=== PATIENT | male | born 1975 | race Hispanic/Latino ===

== ENCOUNTER 2017-09-20 22:15 | Emergency (ER) | payer SELFPAY ==
[~2017-09-20] VITALS: Ht 177.8 cm; Wt 102.1 kg
[~2017-09-20 22:15] MED LIST: ADULTS' DAILY1 EACH PO; PERCOCET 7.5-31 EACH PO
[2017-09-20] MEDS ORDERED: CYCLOBENZAPRINE10 MG PO (22:53)
[2017-09-20] MEDS ORDERED: DICLOFENAC SODI75 MG PO (22:53)
== END 2017-09-20 23:06 | disposition home or self-care (01) ==
LOC: ED 22:15
DX: M54.5 Low back pain (principal); I10 Essential (primary) hypertension; F17.200 Nicotine dependence, unspecified, uncomplicated; Z88.0 Allergy status to penicillin; Z98.890 Other specified postprocedural states; Z79.899 Other long term (current) drug therapy
CPT/HCPCS: 99283

== ENCOUNTER 2018-01-20 15:32 | Emergency (ER) | payer OTHER ==
[~2018-01-20] VITALS: Ht 177.8 cm; Wt 113.4 kg
[~2018-01-20 15:32] MED LIST changes: +CYCLOBENZAPRINE10 MG PO; +DICLOFENAC SODI75 MG PO
== END 2018-01-20 17:46 | disposition home or self-care (01) ==
LOC: ED 15:32
DX: K40.20 Bilateral inguinal hernia, without obstruction or gangrene, not specified as recurrent (principal); E87.6 Hypokalemia; I10 Essential (primary) hypertension; F17.200 Nicotine dependence, unspecified, uncomplicated
CPT/HCPCS: 76870; 80053; 81001; 82150; 83690; 85025; 99284; G0480; J7030

== ENCOUNTER 2018-04-05 22:57 | Emergency (ER) | payer OTHER ==
[~2018-04-05] VITALS: Ht 177.8 cm; Wt 113.4 kg
[2018-04-05] MEDS ORDERED: LISINOPRIL20 MG PO (23:34)
[2018-04-05] MEDS ORDERED: VIAGRA25 MG PO (23:34)
== END 2018-04-06 00:43 | disposition home or self-care (01) ==
LOC: ED 22:57
DX: K40.20 Bilateral inguinal hernia, without obstruction or gangrene, not specified as recurrent (principal); I10 Essential (primary) hypertension; F17.200 Nicotine dependence, unspecified, uncomplicated; Z88.0 Allergy status to penicillin; Z79.899 Other long term (current) drug therapy
CPT/HCPCS: 81001; 99282

== ENCOUNTER 2018-04-30 08:55 | Day surgery (SDC) | payer OTHER ==
[~2018-04-30] VITALS: Ht 177.8 cm; Wt 117.9 kg
[~2018-04-30 08:55] MED LIST changes: +ACETAMINOPHEN-1 EACH PO; +LISINOPRIL20 MG PO; +TYLENOL325 M1 PO; +VIAGRA25 MG PO
[2018-04-30] MEDS ORDERED: LISINOPRIL20 MG PO (09:12)
--- NOTE | 2018-04-30 15:00 | NUR ---
04/30/18 1500 Nga Roberts 1402 PT ARRIVED TO PACU WITH ORAL AIRWAY IN PLACE, PERIODS OF APNEA NOTED. PT REACTIVE. 1405 PT REACTIVE AND ABLE TO FOLLOW COMMANDS TO OPEN MOUTH AND DEEP BREATH. AIRWAY REMOVED. 1410 HEAVY SNORING NOTED WITH PERIODS OF APNEA. PT WAKES TO TACTILE STIMULI AND DEEP BREATHES. PT REPORTS PAIN IN ABD 8/10 AND WORSE WITH COUGHING. 1414 PAIN MEDICATION GIVEN PER EMAR. O2 MASK REMOVED, O2 SAT 94%. 1416 PT ASLEEP AND O2 DECREASED TO 88%, O2 NC PLACED ON PT AT 4L. PT WOKE WITH TACTILE STIMULI AND ENCOURAGED TO DEEP BREATH.
--- NOTE | 2018-04-30 15:30 | NUR ---
PATIENT BACK IN DAY SURGERY ROOM FROM PACU. PATIENT VERY DROWSY, BUT EASILY AWAKENS TO VOICE. C/O PAIN 04/20. MEDICATED FOR PAIN IN PACU. PATIENT DENIES NAUSEA. PATIENT GIVNE PUDDING AND ICE WATER. IV SITE WNL. SCDs ON. BILATERAL GROIN DRESSINGS CDI. ICE PACK TO BILATERAL GROIN. CALL LIGHT WITHIN REACH.
[2018-04-30] MEDS ORDERED: NORCO 10-325 T1 EACH PO (15:40)
--- NOTE | 2018-04-30 16:36 | NUR ---
1545: PATIENT ASSISTED TO STAND AT BEDSIDE. VOID PER URINAL AT BEDSIDE. GAIT STEADY AROUND ROOM. PATIENT BACK IN BED. GOWN CHANGED. GIVEN ORANGE JUICE PER REQUEST. SCDs BACK ON. FAMILY AT BEDSIDE. CALL LIGHT WITHIN REACH. 1620: VS CHECKED. PATIENT WEANED DOWN TO ROOM AIR. O2 SAT 95% ON ROOM AIR. PATIENT GIVEN 1 TAB OF NORCO FOR PAIN. DISCHARGE INSTRUCTIONS GIVEN TO PATIENT AND GIRLFRIEND.
--- NOTE | 2018-05-01 08:28 | OR ---
[facility] [address] [place], [place] [address] Signed DATE OF OPERATION: 04/30/2018 SURGEON: Berto Casey MD PREOPERATIVE DIAGNOSIS: Large bilateral inguinal hernias. POSTOPERATIVE DIAGNOSIS: Large bilateral reducible indirect inguinal hernias. PROCEDURE: Bilateral Kerry onlay mesh inguinal herniorrhaphies (prolonged and difficult, 2 hours and 45 minutes). ESTIMATED BLOOD LOSS: None. INDICATIONS: Frankie is a 42-year-old obese gentleman, who does very physical labor for work. 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 He also worked for the [employer]. More recently, he is at the [employer], lifting very heavy pieces of lumber. He has been noticing pain and swelling in both of his groins, the last four months. He said the pain is an 8/10 with activities. It has been limiting his ability to work. His girlfriend told me she noticed he was having trouble just bending over to tie shoes and so forth. He feels bloated and can feel swelling in the groins. Because of his physical build, it is difficult to ascertain the hernias on physical exam. He was therefore sent for an ultrasound. He has large bilateral inguinal hernias containing fat. There were no hydroceles. He was then asked to see me as a general surgeon. He has continued to have trouble at work. He was asking if he could be on light duty status, which is certainly reasonable. I gave him a booklet in the office on hernias, and we looked at that carefully. He understands the nature of an inguinal hernia, along with a difference between the primary suture repair and a mesh repair. We carefully discussed the expected intraoperative and postoperative course in great detail. He is anxious to continue working, is hoping that he can go back on light duty status. However, given what we found today, I do not suspect he will be returning to work any time soon. He also understands there is risk including, but not limited to bleeding, infection, scarring, change in contour of the skin, damage to the nerves, ischemic orchitis, recurrent hernias, and chronic pain. He has expressed understanding and would like to proceed. Electronically Signed By: BERTO CASEY MD 05/01/18 0828 PATIENT NAME: FELICIA NEVAREZ OPERATIVE REPORT DATE OF : 71 REPORT #: [id number] PHYSICIAN: BERTO CASEY MD PCP: ADIN HAYS REPORT IS CONFIDENTIAL AND NOT TO BE RELEASED WITHOUT AUTHORIZATION [facility] [address] [place], [place] [address] Signed DESCRIPTION OF PROCEDURE: Frankie was taken into the operating room and placed in the supine position under general endotracheal tube anesthesia. He was given preoperative antibiotics along with subcutaneous heparin. SCDs were utilized. He was then prepped and draped in the usual sterile fashion. We approached the right groin first. We utilized a standard oblique incision in the groin and carried that down through the tissues bluntly and with the cautery. We had to have an extra nurse scrubbing into the operating room to help hold large Reeder retractors. Once we found the external oblique, we opened that along its length and developed medially and laterally. He had a significant amount of fat in the cord along with the cord lipoma on both sides. It took a few minutes to dissect down to the pubic tubercle and encircled the cord with a Brennon drain. We approached the cords at the level of deep ring on the anteromedial side and carefully dissected through until we found the hernia sac on both sides. The hernia sac on the right was a little thin to the one on the left. We were able to suture ligate the neck of the hernia sac and reduce that back into the abdomen. The vas deferens and all the fat in pampiniform plexus was kept together. There was no way to dissect all that fat from the pampiniform plexus. However, there was a large cord lipoma on both sides and they were dissected free, amputated with Pean clamps and 0 Vicryl ties. After this, a piece of flat Prolene mesh was cut to fit the groin and a slit was made in the mesh to accommodate the cord structures at the level of deep ring. The mesh was held in place medially and laterally with the help of running #1 Prolene suture. This gave excellent coverage of its direct and indirect spaces. The wound was then irrigated and suctioned out until clear. Local anesthetic was injected into the wound. The external oblique fascia was closed over the repair with a running 2-0 PDS suture. Jd fascia was reapproximated with a running 3-0 Monocryl suture. The dermis was reapproximated with interrupted 3-0 subcuticular Monocryl sutures. The skin edges were reapproximated with running 6-0 fast absorbing plain gut suture. After this, we approached the left groin in an identical fashion. The only difference being the hernia sac on the left side was a little thicker than on the right. We opened that hernia sac and it contained enormous amount of fat in the wall too, so we just closed the hernia sac and reduced it in the abdomen and we used the 2-0 PDS suture to reduce the size of the internal ring, much like a Oumou repair. We then proceeded as usual with our flat Prolene mesh, holding in place medially and laterally with a running #1 Prolene suture. Again, the external oblique fascia was closed over the repair with a running 2-0 PDS suture, and the Jd's fascia was reapproximated with a running 3-0 Monocryl suture. The dermis was reapproximated with interrupted 3-0 subcuticular Monocryl sutures. The skin was then approximated in a running 6-0 fast absorbing plain gut suture. Dry gauze and tape were then applied to both groins. We made sure that the testicle was in each side of the scrotum. After this, he was awakened from his anesthesia, extubated in the OR, and taken to recovery room in stable condition. Electronically Signed By: BERTO CASEY MD 05/01/18 0828 PATIENT NAME: FELICIA NEVAREZ OPERATIVE REPORT DATE OF : 71 REPORT #: [id number] PHYSICIAN: BERTO CASEY MD PCP: ADIN HAYS REPORT IS CONFIDENTIAL AND NOT TO BE RELEASED WITHOUT AUTHORIZATION [address] [address] Signed MD ELLE Eastman/TIMI /[id number] cc: MD Adin Eastman PA Copies: BERTO CASEY MD, RANDALL PA ~ Electronically Signed By: BERTO CASEY MD 05/01/18 0828 PATIENT NAME: ROQUEFELICIA AKRON OPERATIVE REPORT DATE OF : 71 REPORT #: [id number] PHYSICIAN: BERTO CASEY MD PCP: ADIN AHYS REPORT IS CONFIDENTIAL AND NOT TO BE RELEASED WITHOUT AUTHORIZATION
== END 2018-04-30 16:45 | disposition home or self-care (01) ==
LOC: DS 08:55
PROVIDERS: Colon & Rectal Surgery
PROC: 0YUA0JZ Supplement Bilateral Inguinal Region with Synthetic Substitute, Open Approach (ICD-10-PCS; principal; 2018-04-30 10:45)
DX: K40.20 Bilateral inguinal hernia, without obstruction or gangrene, not specified as recurrent (principal); E66.9 Obesity, unspecified; I10 Essential (primary) hypertension; N52.9 Male erectile dysfunction, unspecified; F17.210 Nicotine dependence, cigarettes, uncomplicated; Z98.890 Other specified postprocedural states; Z68.37 Body mass index [BMI] 37.0-37.9, adult; Z79.899 Other long term (current) drug therapy
CPT/HCPCS: 00830; C1781; J0330; J0690; J1100; J1170; J1644; J2250; J2405; J2704; J3010; J7120

== ENCOUNTER 2022-04-29 16:27 | Emergency (ER) | payer OTHER ==
[~2022-04-29] VITALS: Ht 177.8 cm; Wt 121.6 kg
[~2022-04-29 16:27] MED LIST changes: +HYDROXYZINE HCL25 MG PO; +NORCO 10-325 T1 EACH PO
[2022-04-29] MEDS ORDERED: ONDANSETRON ODT8 MG PO (20:23)
== END 2022-04-29 20:54 | disposition home or self-care (01) ==
LOC: ED 16:27
DX: K29.00 Acute gastritis without bleeding (principal); F10.10 Alcohol abuse, uncomplicated; I10 Essential (primary) hypertension; F17.200 Nicotine dependence, unspecified, uncomplicated
CPT/HCPCS: 36415; 80053; 81001; 83735; 85025; 87502; A9270; C9803; J2405; J7030; U0003